=== PATIENT | male | born 1970 | race Caucasian/White ===

== ENCOUNTER 2021-01-31 01:42 | Emergency (ER) | payer OTHER ==
[~2021-01-31] VITALS: Ht 172.7 cm; Wt 72.6 kg
== END 2021-01-31 03:57 | disposition home or self-care (01) ==
LOC: ER 01:51
DX: S80.862A Insect bite (nonvenomous), left lower leg, initial encounter (principal); S80.861A Insect bite (nonvenomous), right lower leg, initial encounter; W57.XXXA Bitten or stung by nonvenomous insect and other nonvenomous arthropods, initial encounter; Y92.89 Other specified places as the place of occurrence of the external cause; F25.9 Schizoaffective disorder, unspecified
CPT/HCPCS: A4663

== ENCOUNTER 2021-02-16 20:56 | Emergency (ER) | payer OTHER ==
[~2021-02-16] VITALS: Ht 177.8 cm; Wt 79.4 kg
--- NOTE | 2021-02-16 21:32 | NUR ---
DR BOWSER INTO EVAL PATIENT.
--- NOTE | 2021-02-16 22:02 | NUR ---
Patient discharged to home in stable condition. Written and verbal after care instructions given. Patient verbalizes understanding of instructions. Stressed follow up or return to ER for worsening s/s.
== END 2021-02-16 22:03 | disposition home or self-care (01) ==
LOC: ER 20:58
DX: S80.862A Insect bite (nonvenomous), left lower leg, initial encounter (principal); S80.861A Insect bite (nonvenomous), right lower leg, initial encounter; S50.861A Insect bite (nonvenomous) of right forearm, initial encounter; W57.XXXA Bitten or stung by nonvenomous insect and other nonvenomous arthropods, initial encounter; Y92.89 Other specified places as the place of occurrence of the external cause; R21 Rash and other nonspecific skin eruption; F17.210 Nicotine dependence, cigarettes, uncomplicated; F25.9 Schizoaffective disorder, unspecified
CPT/HCPCS: A4663